=== PATIENT | male | born 1990 | race African-American/Black ===

== ENCOUNTER 2023-01-22 07:57 | Emergency (ER) | payer SELFPAY ==
[2023-01-22] MEDS ORDERED: Tetracaine 0.5% PF 4 ML BOT ONE (08:52)
== END 2023-01-22 09:05 | disposition home or self-care (01) ==
LOC: CSHERS 07:57
DX: S05.02XA Injury of conjunctiva and corneal abrasion without foreign body, left eye, initial encounter (principal); H10.212 Acute toxic conjunctivitis, left eye
CPT/HCPCS: 99283